=== PATIENT | female | born 1970 | race Caucasian/White ===

== ENCOUNTER 2016-07-10 17:08 | Emergency (ER) | payer MEDICARE ==
[2016-07-10] MEDS ORDERED: IOPAMIDOL 300 (61%) 150 ML VIAL IV ONE (17:09)
[2016-07-10] MEDS ORDERED: ONDANSETRON 4 MG/2ML 2 ML VIAL ONE (18:31)
[2016-07-10] MEDS ORDERED: PANTOPRAZOLE SODIUM 40 MG VIAL IV ONE (18:32)
[2016-07-10] MEDS ORDERED: SODIUM CHLORIDE 0.9% 1,000 ML ONE (18:32)
[2016-07-10 18:40] LABS: ABSOLUTE NEUTROPHIL COUNT 3.6 K/mm3 (1.8-7.7); BASO # 0.1 K/mm3 (0.0-0.2); BASO % 0.8 % (0.2-1.0); EOS # 0.1 (0.0-0.5); HEMATOCRIT 41.2 % (37.0-47.0); HEMOGLOBIN 13.6 gm/l (12.0-16.0); IMM NEUT% 0.5 % (0-1); LYMPH # 1.7 (1.0-4.8); LYMPH % 26.8 % (15-45); MEAN CORPUSCULAR HEMOGLOBIN 29.7 pg (27.0-31.0); MEAN PLATELET VOLUME 9.2 fl (7.4-10.4); MONO # 0.8 (0.0-0.8); MONO % 12.7 % (4-12); NEUT % 58.2 % (43-75); PLATELET COUNT 268 K/mm3 (130-400)
[2016-07-10 18:42] LABS: URINE BILIRUBIN NEGATIVE (NEGATIVE); URINE BLOOD NEGATIVE (NEGATIVE); URINE GLUCOSE (UA) NEGATIVE (NEGATIVE); URINE LEUKOCYTE ESTERASE NEGATIVE (NEGATIVE); URINE NITRITE NEGATIVE (NEGATIVE); URINE PROTEIN NEGATIVE (NEGATIVE); URINE UROBILINOGEN NORMAL (0-1 mg/dl)
[2016-07-10 18:46] LABS: URINE APPEARANCE CLEAR; URINE COLOR AMBER
[2016-07-10 18:56] LABS: ALB/GLOB RATIO 1.4 (>1.0); ALBUMIN 4.6 gm/dL (3.5-5.7); CALCIUM 10.1 mg/dL (8.6-10.3)
--- NOTE | 2016-07-10 19:29 | CT ---
Exam: CT abdomen and pelvis with contrast COMPARISON: 09/10/2012 INDICATION: Diffuse abdominal pain with bloody diarrhea. Anal fissure. TECHNIQUE: CT examination of the abdomen and pelvis was obtained following the administration of 125 mL Isovue-300 intravenous contrast. FINDINGS: The bowel is grossly unremarkable and there is no bowel obstruction, free air or free intraperitoneal fluid. No inflammatory changes are seen within the abdomen or pelvis. Mild hepatic steatosis. Prominent portacaval lymph node is noted measuring up to 1.4 cm are noted but unchanged. Additional small lymph nodes just superior to the pancreas are noted and also stable. Spleen is normal in size. Pancreas, kidneys, adrenal glands and gallbladder are unremarkable. Diastases rectus and tiny fat-containing periumbilical hernia are noted. The uterus is absent. Urinary bladder is collapsed. There is a 4.0 cm right ovarian cyst. 2 low-density lesions are seen within the left ovary measuring up to 2.8 cm compatible dominant follicles. There is a small fat-containing left inguinal hernia the tiny fat-containing right inguinal hernia which are stable. There is a 6 mm nodule within the left lower lobe which is stable since 2012 and therefore benign. Minor scarring or atelectasis within the lingula is also appreciated. Lung bases are otherwise clear. No worrisome lytic or blastic osseous lesion is identified. Mild facet arthropathy is present within the lumbar spine. IMPRESSION: 1. No acute findings identified to explain patient's symptoms. 2. 4.0 cm right ovarian cyst. Recommend follow-up ultrasound in 8-12 weeks to ensure resolution. 3. Additional stable additional findings as above, including benign pulmonary nodule in the left lower lobe, hepatic steatosis and post hysterectomy changes. Report given to Dr. Moncada for Dr. Link 1923 hours 07/10/2016.
== END 2016-07-10 19:50 | disposition home or self-care (01) ==
LOC: ED 17:08
DX: R11.2 Nausea with vomiting, unspecified (principal); R19.7 Diarrhea, unspecified; K60.1 Chronic anal fissure; N83.209 Unspecified ovarian cyst, unspecified side
CPT/HCPCS: 83690; 85025; 80053; 81003; 74177; 96375; 99284 ×2; 96374; C9113; J2405; J7030; Q9967